=== PATIENT | male | born 1940 | race Caucasian/White ===

== ENCOUNTER 2020-06-15 19:57 | Inpatient (IN) | payer MEDICARE, OTHER ==
[~2020-06-15] VITALS: Ht 167.6 cm; Wt 76.6 kg
[~2020-06-15 19:57] MED LIST: LISI-167 PO; OMEP-110 PO; TAMS-11 PO
--- NOTE | 2020-06-15 20:15 | NUR ---
PT BIB [facility]. SUSTAINED GLF OUTSIDE [facility] WITH LACERATION TO POSTERIOR HEAD. +ETOH INTOXICATION. PER EMS, PT IS ON BP MEDS BUT NO BLOOD THINNERS. PT STATES HE'S VISITING FROM [place]. [facility] UPON ARRIVAL TO ED, CURRENTLY INTOXICATED. ANSWERS QUESTIONS APPROPRIATELY. ASKS, "IS THIS WHERE I'M GOING TO SPEND THE NIGHT?" SUTURABLE LAC TO POSTERIOR HEAD WITH SOME BLEEDING. POC & FALL PRECAUTIONS RV'WD WITH PT.
[2020-06-15] MEDS ORDERED: LIDOCAINE 1%-EPI 1:100K, 20ML INFIL ONE (21:00)
--- NOTE | 2020-06-15 21:02 | NUR ---
PT TO CT VIA [facility].
[2020-06-15] MEDS ORDERED: LIDOCAINE 1%-EPI 1:100K, 20ML ONE (21:13)
--- NOTE | 2020-06-15 21:17 | NUR ---
PT RETURNED FROM CT.
[2020-06-15 21:24] LABS: ANION GAP 8 mmol/L (5-15); CALCIUM 8.2 mg/dL (8.5-10.1); CHLORIDE 97 mmol/L (98-107); CREATININE 0.87 mg/dL (0.7-1.3)
[2020-06-15 21:25] LABS: ALBUMIN 3.8 g/dL (3.4-5.0)
[2020-06-15 21:29] LABS: BASOPHILS # (AUTO) 0.07 x10^3/uL (0-0.1); BASOPHILS % (AUTO) 1 % (0-1); EOSINOPHILS # (AUTO) 0.08 x10^3/uL (0-0.4); EOSINOPHILS % (AUTO) 1 % (1-7); LYMPHOCYTES # (AUTO) 1.94 x10^3/uL (1-3.4); LYMPHOCYTES % (AUTO) 28 % (22-44); MD NO; MEAN CORPUSCULAR HGB CONC 33.2 g/dL (33.2-36.2); MEAN PLATELET VOLUME 7.5 fL (7.4-10.4); MONOCYTES # (AUTO) 0.74 x10^3/uL (0.2-0.8); MONOCYTES % (AUTO) 11 % (2-9); NEUTROPHILS # (AUTO) 4.02 x10^3/uL (1.8-6.8); NEUTROPHILS % (AUTO) 59 % (42-75); PLATELET COUNT 208 x10^3/uL (130-400); RED BLOOD COUNT 3.67 x10^6/uL (4.38-5.82); RED CELL DISTRIBUTION WIDTH 14.3 % (9.4-14.8)
--- NOTE | 2020-06-15 21:45 | NUR ---
PT AMBULATED TO WITH STAND BY ASSIST. CHELSIE WARNER AT TO SUTURE THEN STAPLE PT'S POSTERIOR HEAD LACERATION. Addendum: 06/15/20 at 2210 by HBENSON DRESSING APPLIED TO POSTERIOR HEAD: ADAPTIC, GAUZE, KERLIX WRAP.
--- NOTE | 2020-06-15 22:09 | NUR ---
ERP WAS IN TO UPDATE PT AND ON CT RESULTS AND PLAN FOR ADMISSION. PT AMBULATED TO BR WITH 1 PERSON ASSIST AGAIN; STILL UNSTEADY ON AMBULATION.
[2020-06-15] MEDS ORDERED: PROZAC PO (22:12)
[2020-06-15] MEDS ORDERED: STATIN PO (22:12)
--- NOTE | 2020-06-15 22:27 | NUR ---
PT'S , ROBERTA , LEAVING FOR THE NIGHT. ERP AWARE OF PT'S BP 180/109, WILL NOT TREAT UNLESS IT GETS HIGHER.
[2020-06-15] MEDS ORDERED: NEOSPORIN OINT. PKT 1 PACKET ONE (22:30)
--- NOTE | 2020-06-15 23:07 | NUR ---
PT AMBULATED TO BR WITH STAND BY ASSIST FROM RD PROJECT MANAGER AGAIN.
[2020-06-16] VITALS (8 sets, daily range): BP systolic 113–162; BP diastolic 72–90
[2020-06-16] MEDS ORDERED: DIPHENHYDRAMINE 25 MG CAPSULE ONE
[2020-06-16] MEDS ORDERED: DIPHENHYDRAMINE 25 MG CAPSULE PO ONE
[2020-06-16] MEDS ORDERED: TAMSULOSIN 0.4 MG CAP.ER.24H PO ONE
[2020-06-16] MEDS ORDERED: TAMSULOSIN 0.4 MG CAP.ER.24H ONE
--- NOTE | 2020-06-16 00:04 | NUR ---
PT AMBULATED TO BR WITH STAND BY ASSIST. STILL UNSTEADY. DOESN'T USE CALL LIGHT. REMINDED PT ABOUT FALL PRECAUTIONS. PT REQUESTING "A PEE PILL AND SLEEPING PILL. AND I USUALLY HAVE VODKA WHEN I GO TO SLEEP, TOO." ERP NOTIFIED, PT MEDICATED WITH BENADRYL & FLOMAX. ADMITTING MD AT BS NOW.
[2020-06-16] MEDS ORDERED: LABETALOL 5MG/ML, 20ML IVPush PRN (00:30)
[2020-06-16] MEDS ORDERED: morphine SULFATE 10 MG/ML, 1ML IVPush PRN (00:30)
[2020-06-16] MEDS ORDERED: ONDANSETRON 2MG/ML, 2ML IVPush PRN (00:30)
[2020-06-16 00:50] LABS: ALBUMIN 3.8 g/dL (3.4-5.0); BILIRUBIN, DIRECT 0.1 mg/dL (0.1-0.2)
[2020-06-16 00:52] LABS: BILIRUBIN,INDIRECT 0.2 mg/dL (0.0-2.0); BILIRUBIN,TOTAL 0.3 mg/dL (0.2-1.0); TOTAL PROTEIN 6.6 g/dL (6.4-8.2)
[2020-06-16 01:05] LABS: INTERNATIONAL NORMALIZED RATIO 0.97 (0.93-1.1)
[2020-06-16] MEDS: LORazepam 1MG TABLET PO PRN ×2 (01:09→20:16)
[2020-06-16] MEDS: POTASSIUM CHLORIDE 20 MEQ, MAGNESIUM SULFATE 2 GM, THIAMINE 200 MG, MVI ADULT 10 ML, FO... IV SCH (01:59)
[2020-06-16 02:18] LABS: MICROSCOPIC AUTO
[2020-06-16] MEDS: GABAPENTIN 300 MG CAPSULE PO PRN (02:18)
[2020-06-16] MEDS: TEMAZEPAM 15 MG CAPSULE PO PRN ×2 (02:18→20:16)
[2020-06-16 02:30] LABS: AMPHETAMINE SCREEN, URINE Negative (Negative); BARBITURATE SCREEN, URINE Negative (Negative); BENZODIAZEPINE SCREEN, URINE Negative (Negative); CANNABINOID SCREEN, URINE Negative (Negative); COCAINE SCREEN, URINE Negative (Negative); METHADONE SCREEN, URINE Negative (Negative); OPIATE SCREEN, URINE Negative (Negative)
[2020-06-16 05:01] LABS: BASOPHILS # (AUTO) 0.07 x10^3/uL (0-0.1); BASOPHILS % (AUTO) 1 % (0-1); EOSINOPHILS # (AUTO) 0.13 x10^3/uL (0-0.4); EOSINOPHILS % (AUTO) 1 % (1-7); LYMPHOCYTES # (AUTO) 2.64 x10^3/uL (1-3.4); LYMPHOCYTES % (AUTO) 30 % (22-44); MD NO; MEAN CORPUSCULAR HEMOGLOBIN 33.4 pg (27.5-34.5); MEAN CORPUSCULAR HGB CONC 32.6 g/dL (33.2-36.2); MEAN PLATELET VOLUME 7.7 fL (7.4-10.4); MONOCYTES # (AUTO) 1.04 x10^3/uL (0.2-0.8); MONOCYTES % (AUTO) 12 % (2-9); NEUTROPHILS # (AUTO) 5.08 x10^3/uL (1.8-6.8); NEUTROPHILS % (AUTO) 57 % (42-75); PLATELET COUNT 214 x10^3/uL (130-400); RED BLOOD COUNT 3.61 x10^6/uL (4.38-5.82); RED CELL DISTRIBUTION WIDTH 14.3 % (9.4-14.8)
[2020-06-16 05:07] LABS: ANION GAP 8 mmol/L (5-15); CALCIUM 8.3 mg/dL (8.5-10.1); CHLORIDE 101 mmol/L (98-107); CHOL/HDL RATIO 1.5; LDL/HDL RATIO 0.4 (0.5-3.0)
[2020-06-16 05:09] LABS: CREATININE 0.76 mg/dL (0.7-1.3)
[2020-06-16] MEDS: LISINOPRIL 10 MG TABLET PO SCH (09:17)
[2020-06-16] MEDS: ACETAMINOPHEN 325 MG TABLET PO PRN ×3 (09:17→22:50)
[2020-06-16] MEDS: OMEPRAZOLE 20 MG CAPSULE.DR PO SCH (09:17)
[2020-06-16] MEDS: TAMSULOSIN 0.4 MG CAP.ER.24H PO SCH (09:17)
[2020-06-16] MEDS ORDERED: FLUO40CA9 PO ×2 (09:59→10:00)
[2020-06-16] MEDS ORDERED: LORazepam 2 MG/ML, 1ML IV PRN ×5 (11:30)
[2020-06-16] MEDS ORDERED: GADOTERATE 7.5 MMOL/15 ML SYR ONE (18:24)
[2020-06-16] MEDS: LORazepam 2 MG/ML, 1ML IV PRN (21:51)
[2020-06-17 01:17] VITALS: BP 119/76
[2020-06-17] MEDS: POTASSIUM CHLORIDE 20 MEQ, MAGNESIUM SULFATE 2 GM, THIAMINE 200 MG, MVI ADULT 10 ML, FO... IV SCH (01:26)
[2020-06-17 05:48] LABS: ALBUMIN 3.1 g/dL (3.4-5.0); ANION GAP 5 mmol/L (5-15); CALCIUM 8.3 mg/dL (8.5-10.1); CHLORIDE 106 mmol/L (98-107)
[2020-06-17 05:54] LABS: ALANINE AMINOTRANSFERASE 63 U/L (12-78); ALKALINE PHOSPHATASE 47 U/L (45-117); BILIRUBIN,TOTAL 0.5 mg/dL (0.2-1.0); CREATININE 0.88 mg/dL (0.7-1.3); TOTAL PROTEIN 5.7 g/dL (6.4-8.2)
[2020-06-17 06:08] LABS: BASOPHILS # (AUTO) 0.04 x10^3/uL (0-0.1); BASOPHILS % (AUTO) 1 % (0-1); EOSINOPHILS % (AUTO) 2 % (1-7); LYMPHOCYTES # (AUTO) 1.81 x10^3/uL (1-3.4); LYMPHOCYTES % (AUTO) 29 % (22-44); MD NO; MEAN CORPUSCULAR HEMOGLOBIN 33.4 pg (27.5-34.5); MEAN CORPUSCULAR HGB CONC 32.4 g/dL (33.2-36.2); MEAN PLATELET VOLUME 7.7 fL (7.4-10.4); MONOCYTES # (AUTO) 0.88 x10^3/uL (0.2-0.8); MONOCYTES % (AUTO) 14 % (2-9); NEUTROPHILS % (AUTO) 55 % (42-75); PLATELET COUNT 187 x10^3/uL (130-400); RED BLOOD COUNT 3.37 x10^6/uL (4.38-5.82); RED CELL DISTRIBUTION WIDTH 14.4 % (9.4-14.8)
[2020-06-17 07:58] VITALS: BP 161/88
[2020-06-17 07:59] VITALS: BP 163/81
[2020-06-17 08:00] VITALS: BP 130/81
[2020-06-17] MEDS: TAMSULOSIN 0.4 MG CAP.ER.24H PO SCH (09:38)
[2020-06-17] MEDS: LISINOPRIL 10 MG TABLET PO SCH (09:38)
[2020-06-17] MEDS: OMEPRAZOLE 20 MG CAPSULE.DR PO SCH (09:38)
[2020-06-17] MEDS: MECLIZINE 25 MG TABLET PO SCH ×3 (09:39→20:30)
[2020-06-17 12:09] VITALS: BP 127/69
[2020-06-17] MEDS: LORazepam 2 MG/ML, 1ML IV PRN ×3 (16:12→22:53)
[2020-06-17 18:36] VITALS: BP 151/89
[2020-06-17] MEDS: TEMAZEPAM 15 MG CAPSULE PO PRN (20:30)
[2020-06-18 01:35] VITALS: BP 153/79
[2020-06-18] MEDS: POTASSIUM CHLORIDE 20 MEQ, MAGNESIUM SULFATE 2 GM, THIAMINE 200 MG, MVI ADULT 10 ML, FO... IV SCH (01:42)
[2020-06-18 07:34] VITALS: BP 147/85
[2020-06-18] MEDS: TAMSULOSIN 0.4 MG CAP.ER.24H PO SCH (09:52)
[2020-06-18] MEDS: LISINOPRIL 10 MG TABLET PO SCH (09:52)
[2020-06-18] MEDS: OMEPRAZOLE 20 MG CAPSULE.DR PO SCH (09:52)
[2020-06-18 09:56] VITALS: BP 157/98
[2020-06-18] MEDS: MECLIZINE 25 MG TABLET PO SCH ×3 (09:56→21:00)
[2020-06-18 12:01] VITALS: BP 125/80
[2020-06-18 20:33] VITALS: BP 134/81
[2020-06-18] MEDS: LORazepam 1MG TABLET PO PRN (21:00)
[2020-06-18] MEDS: TEMAZEPAM 15 MG CAPSULE PO PRN (21:00)
[2020-06-18] MEDS: GABAPENTIN 300 MG CAPSULE PO PRN (21:00)
[2020-06-19] MEDS: POTASSIUM CHLORIDE 20 MEQ, MAGNESIUM SULFATE 2 GM, THIAMINE 200 MG, MVI ADULT 10 ML, FO... IV SCH (01:24)
[2020-06-19 03:55] VITALS: BP 117/67
[2020-06-19 07:46] VITALS: BP 138/76
[2020-06-19] MEDS: LISINOPRIL 10 MG TABLET PO SCH (08:44)
[2020-06-19] MEDS: MECLIZINE 25 MG TABLET PO SCH ×3 (08:44→19:48)
[2020-06-19] MEDS: TAMSULOSIN 0.4 MG CAP.ER.24H PO SCH (08:44)
[2020-06-19] MEDS: OMEPRAZOLE 20 MG CAPSULE.DR PO SCH (08:44)
[2020-06-19 12:09] VITALS: BP 143/88
[2020-06-19 19:20] VITALS: BP 137/84
[2020-06-19] MEDS: LORazepam 1MG TABLET PO PRN (19:48)
[2020-06-19] MEDS: TEMAZEPAM 15 MG CAPSULE PO PRN ×2 (19:48→20:51)
[2020-06-19] MEDS: GABAPENTIN 300 MG CAPSULE PO PRN (19:48)
[2020-06-19] MEDS: ACETAMINOPHEN 325 MG TABLET PO PRN (20:51)
[2020-06-20] MEDS: POTASSIUM CHLORIDE 20 MEQ, MAGNESIUM SULFATE 2 GM, THIAMINE 200 MG, MVI ADULT 10 ML, FO... IV SCH (01:49)
[2020-06-20 03:59] VITALS: BP 154/92
[2020-06-20 06:36] VITALS: BP 157/82
[2020-06-20] MEDS: MECLIZINE 25 MG TABLET PO SCH ×3 (08:42→20:08)
[2020-06-20] MEDS: OMEPRAZOLE 20 MG CAPSULE.DR PO SCH (08:42)
[2020-06-20] MEDS: SERTRALINE 50MG TABLET PO SCH (08:42)
[2020-06-20] MEDS: LISINOPRIL 10 MG TABLET PO SCH (08:43)
[2020-06-20] MEDS: TAMSULOSIN 0.4 MG CAP.ER.24H PO SCH (08:43)
[2020-06-20] MEDS: POLYETHYLENE GLYCOL 17 GM PACKET PO SCH ×2 (12:45→20:08)
[2020-06-20 13:14] VITALS: BP 134/76
[2020-06-20] MEDS ORDERED: FLUOXETINE HCL 20 MG CAPSULE PO SCH (13:26)
[2020-06-20 19:18] VITALS: BP 143/83
[2020-06-20] MEDS: GABAPENTIN 300 MG CAPSULE PO PRN (20:08)
[2020-06-20] MEDS: TEMAZEPAM 15 MG CAPSULE PO PRN ×2 (20:08→21:47)
[2020-06-20] MEDS: LORazepam 1MG TABLET PO PRN (23:34)
[2020-06-21 01:06] VITALS: BP 137/79
[2020-06-21] MEDS: POTASSIUM CHLORIDE 20 MEQ, MAGNESIUM SULFATE 2 GM, THIAMINE 200 MG, MVI ADULT 10 ML, FO... IV SCH (01:54)
[2020-06-21 02:24] VITALS: BP 128/78
[2020-06-21 07:35] VITALS: BP 143/87
[2020-06-21] MEDS: POLYETHYLENE GLYCOL 17 GM PACKET PO SCH ×2 (09:42→20:57)
[2020-06-21] MEDS: OMEPRAZOLE 20 MG CAPSULE.DR PO SCH (09:43)
[2020-06-21] MEDS: LISINOPRIL 10 MG TABLET PO SCH (09:43)
[2020-06-21] MEDS: TAMSULOSIN 0.4 MG CAP.ER.24H PO SCH (09:43)
[2020-06-21] MEDS: SERTRALINE 50MG TABLET PO SCH (09:43)
[2020-06-21] MEDS: MECLIZINE 25 MG TABLET PO SCH ×3 (09:43→20:57)
[2020-06-21 14:00] VITALS: BP 139/62
--- NOTE | 2020-06-21 17:10 | NUR ---
Posted activity sheet with recommendation of 3 walks/day with FWW and up to chair for all meals Addendum: 06/21/20 at 1711 by Darion Irving PT Amended: Links added.
[2020-06-21 18:28] VITALS: BP 135/75
[2020-06-21] MEDS: TEMAZEPAM 15 MG CAPSULE PO PRN ×2 (20:57→23:16)
[2020-06-21] MEDS: GABAPENTIN 300 MG CAPSULE PO PRN (20:57)
[2020-06-21] MEDS: ACETAMINOPHEN 325 MG TABLET PO PRN (23:20)
[2020-06-22 01:04] VITALS: BP 134/76
[2020-06-22] MEDS: POTASSIUM CHLORIDE 20 MEQ, MAGNESIUM SULFATE 2 GM, THIAMINE 200 MG, MVI ADULT 10 ML, FO... IV SCH (01:26)
[2020-06-22 06:15] LABS: CHLORIDE 105 mmol/L (98-107)
[2020-06-22 06:23] LABS: ANION GAP 5 mmol/L (5-15); CALCIUM 8.4 mg/dL (8.5-10.1); CREATININE 0.76 mg/dL (0.7-1.3)
[2020-06-22 08:29] VITALS: BP 182/91
[2020-06-22] MEDS: OMEPRAZOLE 20 MG CAPSULE.DR PO SCH (08:35)
[2020-06-22] MEDS: POLYETHYLENE GLYCOL 17 GM PACKET PO SCH ×2 (08:35→21:23)
[2020-06-22] MEDS: TAMSULOSIN 0.4 MG CAP.ER.24H PO SCH (08:35)
[2020-06-22] MEDS: LISINOPRIL 10 MG TABLET PO SCH ×2 (08:35→21:23)
[2020-06-22] MEDS: SERTRALINE 50MG TABLET PO SCH (08:36)
[2020-06-22] MEDS: MECLIZINE 25 MG TABLET PO SCH ×3 (08:36→21:23)
[2020-06-22 09:36] VITALS: BP 122/71
[2020-06-22] MEDS ORDERED: LABETALOL 5MG/ML, 20ML IVPush PRN (10:30)
[2020-06-22 12:07] VITALS: BP 135/78
[2020-06-22 20:30] VITALS: BP 154/76
[2020-06-22] MEDS: TEMAZEPAM 15 MG CAPSULE PO PRN (22:31)
[2020-06-23] MEDS: ACETAMINOPHEN 325 MG TABLET PO PRN (00:01)
[2020-06-23 00:40] VITALS: BP 128/79
[2020-06-23] MEDS: GABAPENTIN 300 MG CAPSULE PO PRN ×2 (00:45→16:18)
[2020-06-23 08:40] VITALS: BP 118/73
[2020-06-23] MEDS: LISINOPRIL 10 MG TABLET PO SCH ×2 (09:26→20:47)
[2020-06-23] MEDS: MULTIVITAMINS WITH IRON TABLET PO SCH (09:26)
[2020-06-23] MEDS: OMEPRAZOLE 20 MG CAPSULE.DR PO SCH (09:26)
[2020-06-23] MEDS: POLYETHYLENE GLYCOL 17 GM PACKET PO SCH ×2 (09:26→20:46)
[2020-06-23] MEDS: FOLIC ACID 1 MG TABLET PO SCH (09:26)
[2020-06-23] MEDS: MECLIZINE 25 MG TABLET PO SCH ×3 (09:27→20:47)
[2020-06-23] MEDS: THIAMINE 100MG TABLET PO SCH (09:27)
[2020-06-23] MEDS: TAMSULOSIN 0.4 MG CAP.ER.24H PO SCH (09:27)
[2020-06-23] MEDS: SERTRALINE 50MG TABLET PO SCH (09:27)
[2020-06-23 14:40] VITALS: BP 90/55
[2020-06-23 19:09] VITALS: BP 100/65
[2020-06-23] MEDS: TEMAZEPAM 15 MG CAPSULE PO PRN ×3 (20:47→22:07)
[2020-06-23 20:48] VITALS: BP 125/73
[2020-06-23] MEDS: LORazepam 1MG TABLET PO PRN (23:01)
[2020-06-24 03:10] VITALS: BP 131/76
[2020-06-24] MEDS: FOLIC ACID 1 MG TABLET PO SCH (08:38)
[2020-06-24] MEDS: OMEPRAZOLE 20 MG CAPSULE.DR PO SCH (08:38)
[2020-06-24] MEDS: TAMSULOSIN 0.4 MG CAP.ER.24H PO SCH (08:38)
[2020-06-24] MEDS: LISINOPRIL 10 MG TABLET PO SCH ×2 (08:38→20:47)
[2020-06-24] MEDS: MECLIZINE 25 MG TABLET PO SCH ×3 (08:38→20:47)
[2020-06-24] MEDS: THIAMINE 100MG TABLET PO SCH (08:38)
[2020-06-24] MEDS: SERTRALINE 50MG TABLET PO SCH (08:38)
[2020-06-24] MEDS: POLYETHYLENE GLYCOL 17 GM PACKET PO SCH ×2 (08:39→20:46)
[2020-06-24] MEDS: MULTIVITAMINS WITH IRON TABLET PO SCH (08:39)
[2020-06-24 08:48] VITALS: BP 132/85
[2020-06-24 19:11] VITALS: BP 132/76
[2020-06-24] MEDS: GABAPENTIN 300 MG CAPSULE PO PRN (19:31)
[2020-06-24] MEDS: TEMAZEPAM 15 MG CAPSULE PO PRN ×2 (20:51→22:23)
[2020-06-24] MEDS ORDERED: ATORVASTATIN 40 MG TABLET PO SCH (21:00)
[2020-06-25 00:18] VITALS: BP 124/76
[2020-06-25] MEDS: ACETAMINOPHEN 325 MG TABLET PO PRN ×2 (00:57→09:48)
[2020-06-25 07:14] VITALS: BP 155/89
[2020-06-25] MEDS: POLYETHYLENE GLYCOL 17 GM PACKET PO SCH (09:00)
[2020-06-25] MEDS: OMEPRAZOLE 20 MG CAPSULE.DR PO SCH (09:48)
[2020-06-25] MEDS: FOLIC ACID 1 MG TABLET PO SCH (09:48)
[2020-06-25] MEDS: MULTIVITAMINS WITH IRON TABLET PO SCH (09:48)
[2020-06-25] MEDS: TAMSULOSIN 0.4 MG CAP.ER.24H PO SCH (09:49)
[2020-06-25] MEDS: LISINOPRIL 10 MG TABLET PO SCH (09:49)
[2020-06-25] MEDS: SERTRALINE 50MG TABLET PO SCH (09:49)
[2020-06-25] MEDS: MECLIZINE 25 MG TABLET PO SCH (09:49)
[2020-06-25] MEDS: THIAMINE 100MG TABLET PO SCH (09:49)
[2020-06-25] MEDS ORDERED: LISI-167 PO (11:55)
[2020-06-25] MEDS ORDERED: THIA100T67 PO (11:55)
[2020-06-25] MEDS ORDERED: SERT50TA28 PO (11:55)
[2020-06-25] MEDS ORDERED: TEMA15CA6 PO (11:55)
[2020-06-25] MEDS ORDERED: MECL-101 PO (11:55)
[2020-06-25] MEDS ORDERED: ACET325T26 PO (11:55)
[2020-06-25] MEDS ORDERED: LORA-446 PO (11:55)
[2020-06-25] MEDS ORDERED: MULT1TAB81 PO (11:55)
[2020-06-25] MEDS ORDERED: POLY17PO5 PO (11:55)
[2020-06-25] MEDS ORDERED: FOLI-17 PO (11:55)
[2020-06-25] MEDS ORDERED: ATOR40TA78 PO (11:55)
[2020-06-25 12:44] VITALS: BP 124/68
== END 2020-06-25 16:08 | DRG 83 ==
LOC: ED 22:59 → EDIP 23:46 → 4WST 06-16 00:28 → 4EST 06-16 21:51
PROVIDERS: ADMIT Family Medicine; ATTEND Internal Medicine
DX: S06.5X9A Traumatic subdural hemorrhage with loss of consciousness of unspecified duration, initial encounter (principal); E87.1 Hypo-osmolality and hyponatremia; F03.91 Unspecified dementia, unspecified severity, with behavioral disturbance; F33.1 Major depressive disorder, recurrent, moderate; F10.239 Alcohol dependence with withdrawal, unspecified; F10.24 Alcohol dependence with alcohol-induced mood disorder; D53.9 Nutritional anemia, unspecified; E86.1 Hypovolemia; E78.5 Hyperlipidemia, unspecified; F41.8 Other specified anxiety disorders; I10 Essential (primary) hypertension; I95.1 Orthostatic hypotension; N40.0 Benign prostatic hyperplasia without lower urinary tract symptoms; S01.01XA Laceration without foreign body of scalp, initial encounter; R45.1 Restlessness and agitation; F10.229 Alcohol dependence with intoxication, unspecified; Y90.8 Blood alcohol level of 240 mg/100 ml or more; Z79.899 Other long term (current) drug therapy; Z91.19 Patient's noncompliance with other medical treatment and regimen; Z87.891 Personal history of nicotine dependence; Z86.73 Personal history of transient ischemic attack (TIA), and cerebral infarction without residual deficits; W10.1XXA Fall (on)(from) sidewalk curb, initial encounter; Y92.89 Other specified places as the place of occurrence of the external cause; Y93.89 Activity, other specified; Y99.8 Other external cause status
CPT/HCPCS: 13132; 36415; 70450; 70545; 70547; 70553; 71045; 72125; 80048; 80053; 80061; 80076; 80307; 81001; 82040; 82607; 83735; 84100; 84443; 85025; 85610; 93005; 93306; 96374; G0378; J3411; J3475; J3480; J3490; J7042; A9575; J2060; J2270; Q0163